=== PATIENT | male | born 2005 | race Caucasian/White ===

== ENCOUNTER 2023-07-15 16:27 | Emergency (ER) | payer SELFPAY ==
[~2023-07-15] VITALS: Ht 190.5 cm; Wt 87.5 kg
[2023-07-15 18:29] VITALS: BP 115/74
== END 2023-07-15 18:33 | disposition home or self-care (01) ==
LOC: ED 16:27
DX: S76.311A Strain of muscle, fascia and tendon of the posterior muscle group at thigh level, right thigh, initial encounter (principal); X58.XXXA Exposure to other specified factors, initial encounter; Y93.64 Activity, baseball; Z88.0 Allergy status to penicillin; Z88.1 Allergy status to other antibiotic agents
CPT/HCPCS: 99283

== ENCOUNTER 2023-12-28 19:34 | Emergency (ER) | payer OTHER, BC ==
[~2023-12-28] VITALS: Ht 190.5 cm; Wt 85.0 kg
[2023-12-28] MEDS ORDERED: DIPHTH,PERTUSS(ACELL),TET VAC 0.5 ML SYRINGE IM ONE (20:30)
[2023-12-28 20:41] VITALS: BP 122/75
== END 2023-12-28 20:42 | disposition home or self-care (01) ==
LOC: ED 19:34
DX: S01.112A Laceration without foreign body of left eyelid and periocular area, initial encounter (principal); Y93.67 Activity, basketball; Z88.0 Allergy status to penicillin; Z88.8 Allergy status to other drugs, medicaments and biological substances
CPT/HCPCS: 90715

== ENCOUNTER 2024-07-19 20:01 | Emergency (ER) | payer OTHER, BC ==
[~2024-07-19] VITALS: Ht 190.5 cm; Wt 90.7 kg
[2024-07-19 22:20] VITALS: BP 121/73
== END 2024-07-19 22:20 | disposition home or self-care (01) ==
LOC: ED 20:01
DX: S86.112A Strain of other muscle(s) and tendon(s) of posterior muscle group at lower leg level, left leg, initial encounter (principal); Z88.0 Allergy status to penicillin; Z88.1 Allergy status to other antibiotic agents; X58.XXXA Exposure to other specified factors, initial encounter; Y93.67 Activity, basketball
CPT/HCPCS: 99283